=== PATIENT | female | born 2000 | race Caucasian/White ===

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

== ENCOUNTER 2019-04-24 03:54 | Emergency (ER) | payer SELFPAY ==
[2019-04-24] MEDS ORDERED: LIDOCAINE 1%/EPINEPHRINE INJ 20 ML VIAL INJ ONE (05:43)
[2019-04-24] MEDS ORDERED: CEPHALEXIN 500 MG CAPSULE PO ONE (05:43)
--- NOTE | 2019-04-24 05:45 | ER Document Report ---
ED Wound - General Chief Complaint: Laceration Stated Complaint: RIGHT HAND/BASE OF INDEX FINGER LACERATION Time Seen by Provider: 04/24/19 05:35 Notes: Patient is a 19-year-old female that comes emergency department for chief complaint of laceration to her right palm. She states she was grabbing onto a canvas hanging on the wall and a nail sticking out of the canvas stabbed her in the palm. She states her tetanus is up-to-date within 5 years. She denies any other injuries, she denies any daily medications, she denies . TRAVEL OUTSIDE OF THE [place] IN LAST 30 DAYS: No - Related Data Allergies/Adverse Reactions: No Known Allergies Allergy (Verified 12/23/17 16:27) Past Medical History - General Information source: Patient - Social History Smoking Status: Current Every Day Smoker Frequency of alcohol use: None Drug Abuse: None Lives with: Family Family History: Reviewed & Not Pertinent Patient has suicidal ideation: No Patient has homicidal ideation: No Renal/ Medical History: Denies: Hx Peritoneal Dialysis Psychiatric Medical History: Reports: Hx Bipolar Disorder, Hx Depression - anxiety Past Surgical History: Reports: Hx Oral Surgery - wisdom teeth, Hx Tonsillectomy - Immunizations Immunizations up to date: Yes Hx Diphtheria, Pertussis, Tetanus Vaccination: Yes Review of Systems - Review of Systems Constitutional: No symptoms reported EENT: No symptoms reported Cardiovascular: No symptoms reported Respiratory: No symptoms reported Gastrointestinal: No symptoms reported Genitourinary: No symptoms reported Female Genitourinary: No symptoms reported Musculoskeletal: See HPI Skin: See HPI Hematologic/Lymphatic: No symptoms reported Neurological/Psychological: No symptoms reported Physical Exam - Vital signs Vitals: Temp Pulse Resp BP Pulse Ox 98.1 F 123 H 22 H 131/83 H 100 04/24/19 03:59 04/24/19 03:59 04/24/19 03:59 04/24/19 03:59 04/24/19 03:59 - Notes Notes: GENERAL: Alert, interacts well. No acute distress. HEAD: Normocephalic, atraumatic. EYES: Pupils equal, round, and reactive to light. Extraocular movements intact. ENT: Oral mucosa moist, tongue midline. Oropharynx unremarkable. Airway patent. LUNGS: Clear to auscultation bilaterally, no wheezes, rales, or rhonchi. No respiratory distress. HEART: Regular rate and rhythm. No murmur ABDOMEN: Soft, non-tender. Non-distended. EXTREMITIES: There is a linear 1.5 cm laceration over the dorsal aspect of the right hand over the third MCP. This is vertical. Partial-thickness. Easy to explore and there is no evidence of tendon or nerve injury. Full strength of all fingers including flexion and extension against resistance, normal cap refill and sensation, normal hand, wrist, arm exam otherwise. BACK: no cervical, thoracic, lumbar midline tenderness. No saddle anesthesia, normal distal neurovascular exam. Moves all extremities in full range of motion. NEUROLOGICAL: Alert and oriented x3. Normal speech. Cranial nerves II through XII grossly intact. PSYCH: Normal affect, normal mood. SKIN: Warm, dry, normal turgor. No rashes or lesions noted. Course - Re-evaluation Re-evalutation: Negative x-ray. Wound cleaned very thoroughly before closure and patient will be covered with antibiotics. Tetanus already up-to-date reportedly. Discussed follow-up and return precautions. Patient states understanding and agreement. - Vital Signs Vital signs: Temp Pulse Resp BP Pulse Ox 98 F 88 18 98/54 L 98 04/24/19 07:30 04/24/19 07:30 04/24/19 07:30 04/24/19 07:30 04/24/19 07:30 Procedures - Laceration/Wound Repair Right palm Wound length (cm): 1.5 Wound's Depth, Shape: Linear Laceration pre-procedure: Sterile PPE donned, Sterile drapes applied, Shur-Clens applied Anesthetic type: 1% Lidocaine w/epi Volume Anesthetic (mLs): 4 Wound explored: Clean, No foreign body removed Wound Repaired With: Sutures Suture Size/Type: 5:0, Ethilon Number of Sutures: 3 Layer Closure?: No Post-procedure wound care: Sterile dressing applied Post-procedure NV exam normal: Yes Complications: No Discharge - Discharge Clinical Impression: Laceration of right palm Qualifiers: Encounter type: initial encounter Qualified Code(s): S61.411A - Laceration without foreign body of right hand, initial encounter Condition: Stable Disposition: HOME, SELF-CARE Additional Instructions: The x-ray is normal. The laceration has been repaired with sutures, these need to be removed in 7 days. Keep clean, clean with soap and water, dab dry. Avoid soaking or scrubbing. You can keep a thin film of topical antibiotic over the area. Take Tylenol or ibuprofen for pain. Return for any signs of infection including swelling, redness, pain, discolored discharge, fever, or any other concerning symptoms. Prescriptions: Cephalexin Monohydrate [Keflex 500 mg Capsule] 500 mg PO TID 5 Days #15 capsule Forms: Return to Work
--- NOTE | 2019-04-24 07:17 | RADIOLOGY REPORT (SQ) ---
CLINICAL HISTORY: nail injury to palm COMPARISON: None. 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 Joint spaces are preserved. Soft tissues are unremarkable. IMPRESSION: No acute osseous findings.
[2019-04-24 07:30] VITALS: BP 98/54
== END 2019-04-24 07:30 | disposition home or self-care (01) ==
LOC: ER 03:54
DX: S61.411A Laceration without foreign body of right hand, initial encounter (principal); F17.200 Nicotine dependence, unspecified, uncomplicated; W45.0XXA Nail entering through skin, initial encounter
CPT/HCPCS: 99283; 73130; 12001; J3490